=== PATIENT | male | born 1960 | race Caucasian/White ===

== ENCOUNTER 2016-06-17 14:07 | Inpatient (IN) | payer BC, MEDICARE ==
--- NOTE | ~2016-06-17 | HP ---
History And Physical [address] [place]. [address] NAME: KAYLENE VALENCIA : 56 STATUS : ADM IN [facility]#: [id number] AGE: 56 ADM/REG DATE : 06/17/16 MR#: [id number] REPORT SERV DATE: 06/17/16 DICTATED BY: ZAK ARENAS DATE: 06/17/16 REPORT STATUS : Draft TRANSCRIBED BY: MEAGAN DATE: 06/17/16 DATE OF ADMISSION: 06/17/2016 CHIEF COMPLAINT: Shortness of breath. HISTORY OF PRESENT ILLNESS: The patient is a 56-year-old white male with known history of multiple myeloma, who recently suffered a pathological fracture of the left femur and underwent ORIF approximately in April and was on Lovenox approximately one month past his surgery. Over the last four to five days, he started complaining of having shortness of breath especially with exertion. He also had some chest pain that was across his chest mainly in the left upper area with deep breathing. He denied any cough. He has not had any fever, chills, nausea, vomiting. He has noticed no swelling in his lower extremities. He has not taken any long car rides or has changed any other medications in anyway. When he came to the emergency room, he was found to be slightly hypoxic and then a CTA revealed a moderate volume pulmonary embolism. So, he has been referred to the Hospitalist Service for further treatment and evaluation. REVIEW OF SYSTEMS: Otherwise negative. PAST MEDICAL HISTORY: Significant for bilateral hip surgeries and multiple pathological fractures with ORIF in the past. He has multiple myeloma, gastroesophageal reflux, hypothyroidism, and varicose veins. PAST SURGICAL HISTORY: Significant again for multiple pathological fractures including compression fractures of the lumbar spine. This patient reports no history of prior bleeding or other issues. ALLERGIES: NO KNOWN DRUG ALLERGIES. HOME MEDICATIONS: Home medications will be reviewed when available from pharmacy. The patient's home medication includes Zovirax 400 mg twice daily, aspirin 81 mg once daily, vitamin D 2000 units p.o. two times weekly, dexamethasone 20 mg p.o. q.14 days every Tuesday, prednisone 14 mg alternating weeks, Lomotil 5 mg every four hours p.r.n. for diarrhea, Proscar 5 mg once daily, Neurontin 300 mg twice daily, Revlimid 25 mg daily for 21 days, then off for 7 days, levothyroxine 150 mcg once daily, MS Contin 50 mg twice daily p.r.n. for pain, multivitamins one tablet daily, Roxicodone 10 mg every 4 hours p.r.n. for breakthrough pain, Protonix 40 mg once daily, Lamisil 250 mg once daily, Empliciti one dose IV every 14 days, Zometa 4 mg one dose IV every 90 days. FAMILY HISTORY: Brother with aneurysm in his leg and mother had intracranial bleeding, but otherwise unremarkable. SOCIAL HISTORY: The patient is working, is otherwise ambulatory. Denies use of alcohol, tobacco, or illicit substances. History And Physical [address] [address] NAME: KAYLENE VALENCIA : 56 STATUS : ADM IN [facility]#: [id number] AGE: 56 ADM/REG DATE : 06/17/16 MR#: [id number] REPORT SERV DATE: 06/17/16 DICTATED BY: ZAK ARENAS DATE: 06/17/16 REPORT STATUS : Draft TRANSCRIBED BY: MEAGAN DATE: 06/17/16 PHYSICAL EXAMINATION: GENERAL: White male, lying on a gurney, appears to be in no obvious respiratory distress. He is awake, alert. He is oriented. VITAL SIGNS: Blood pressure upon arrival to the emergency room 116/61, temperature is 97.2, pulse is 105, saturation of 96%. HEENT: Head is normocephalic, atraumatic. Pupils are equal, round, and reactive to light. Extraocular muscles are intact. Sclerae anicteric. Conjunctivae normal. Oropharynx without lesion. Tongue protrusion midline. Uvula midline. NECK: Supple. No jugular venous distention. No carotid bruits or thyromegaly is appreciated. No lymphadenopathy in the neck is palpable. HEART: Regular rate and rhythm. Mild tachycardia. No murmurs, rubs, or gallops. PMI nondisplaced. CHEST: Somewhat barrel-chested. LUNGS: Clear to auscultation with diminished sounds in both lung spencer. No rales, rhonchi, wheezing, or evidence of consolidation. ABDOMEN: Scaphoid, soft, nontender, good bowel sounds. No rebound or guarding. No organomegaly. EXTREMITIES: Without cyanosis, clubbing, or edema. Varicose veins are noted. No lesions in the lower extremities. NEUROLOGIC: Completely normal. LABS: CBC: White count 5.0, hemoglobin 10.0, hematocrit 29, platelet count is 80,000. BNP of 111. BMP: Sodium 137, potassium 3.0, chloride 102, bicarb 28, BUN 14, creatinine 1.09, glucose of 106. Troponin less than 0.02. EKG: Sinus rhythm, no acute ST-T wave changes. Leftward axis is noted. CTA chest, moderate-size right pulmonary embolism, left upper lobe opacity unknown, could be related to infarction of the lung. IMPRESSION: 1. Acute moderate volume pulmonary embolism, possibility of left upper lobe infarction. 2. Multiple myeloma. 3. Recent left femur fracture, status post open reduction and internal fixation. 4. Gastroesophageal reflux. 5. Hypothyroidism. 6. Varicose veins. PLAN: The patient will be admitted. Start the patient on loading dose of Eliquis 10 mg twice daily for seven days and then reduce to [address] Wilian Segura for multiple myeloma. Reasonable pain control. Bronchodilator therapy. Wean O2. Two- dimensional echocardiogram to further assess for any cardiac risk due to PE. Obtain bilateral lower extremity venous Dopplers. The patient remains a full code. SV/MEAGAN Zak History And Physical [address] [address] NAME: KAYLENE VALENCIA : 56 STATUS : ADM IN [facility]#: [id number] AGE: 56 ADM/REG DATE : 06/17/16 MR#: [id number] REPORT SERV DATE: 06/17/16 DICTATED BY: ZAK ARENAS P. DATE: 06/17/16 REPORT STATUS : Draft TRANSCRIBED BY: MODL DATE: 06/17/16 Michele Arenas / [id number] CC: Michele Carreon M.D. Darrell Johnson, M.D.
--- NOTE | ~2016-06-17 | DS ---
Discharge Summary [facility] [address] [facility] [place]. [address] NAME: KAYLENE VALENCIA : 56 STATUS : DIS IN PAT#: [id number] AGE: 56 ADM/REG DATE : 06/17/16 MR#: [id number] REPORT SERV DATE: 06/19/16 DICTATED BY: ZAK ARENAS DATE: 06/18/16 REPORT STATUS : Draft TRANSCRIBED BY: MODRosalinda DATE: 06/18/16 ADMISSION DATE: 06/17/2016 DISCHARGE DATE: 06/18/2016 DISCHARGE DIAGNOSES: 1. Acute pulmonary embolism, moderate volume on the right side. 2. Multiple myeloma. 3. Recent left femoral fracture, status post open reduction internal fixation. 4. Gastroesophageal reflux. 5. Hypothyroidism. 6. Varicose veins. CONSULTANTS DURING THIS HOSPITALIZATION: Dr. Wilian Segura of Hematology/Oncology. INVASIVE PROCEDURES DONE DURING THIS HOSPITALIZATION: None. BRIEF HISTORY OF PRESENT ILLNESS: The patient is a 56-year-old white male, presented to the emergency room with shortness of breath and found to have a PE, so he was admitted. For detailed history and physical exam, please see my note dictated on 06/17/2016. HOSPITAL COURSE: After being admitted to the hospital, this patient immediately was started on a loading dose of Eliquis 10 mg twice daily. This patient was observed in the hospital for 24 hours. Lower extremity Dopplers were done and reports of which will be followed up prior to the patient's discharge. This patient is feeling really well today and he is not requiring oxygen even with ambulation. His shortness of breath has improved somewhat as well and he is tolerating the Eliquis without any difficulty. He remained stable otherwise and is being discharged in stable condition. DISCHARGE DISPOSITION: Home. DISCHARGE ACTIVITY: As tolerated. DISCHARGE DIET: As tolerated. DISCHARGE MEDICATIONS: Eliquis 10 mg p.o. twice daily for six more days and then decreased down to 5 mg twice daily, acyclovir 400 mg twice daily, aspirin 81 mg once daily, dexamethasone 20 mg every 14 days and then alternating with 14 mg every 14 days, Proscar 1.25 mg daily, Zometa 4 mg every 90 days IV injection, gabapentin 300 mg twice daily, levothyroxine 150 mcg once daily, morphine SR 15 mg twice daily p.r.n., Protonix 40 mg once daily, Lamisil 250 mg once daily, vitamin D 2000 units two times weekly, Centrum multivitamins, Revlimid 25 mg p.o. daily for 21 days then off for seven days, Empliciti one dose IV every 14 days, Lomotil 2.5 mg every four hours p.r.n. for diarrhea, Roxicodone 10 mg every four hours p.r.n. for pain, calcium one tablet every morning. DISCHARGE FOLLOWUP: With Dr. Wilian Segura as scheduled previously or in one week. Discharge Summary [address] [address] NAME: KAYLENE VALENCIA : 56 STATUS : DIS IN PAT#: [id number] AGE: 56 ADM/REG DATE : 06/17/16 MR#: [id number] REPORT SERV DATE: 06/19/16 DICTATED BY: ZAK ARENAS DATE: 06/18/16 REPORT STATUS : Draft TRANSCRIBED BY: MEAGAN DATE: 06/18/16 More than 30 minutes spent planning this patient's discharge, reconciling medications, writing prescriptions, discussing hospital care, and followup with the patient and documenting this discharge. JOSE/MEAGAN Zak Arenas M.D. / [id number] CC: Michele Carreon M.D. Darrell Johnson, M.D.
[2016-06-17 12:22] LABS: BASOPHILS 0 %; EOSINOPHILS 0 %; IMMATURE GRANULOCYTES 0.6 %; IMMATURE GRANULOCYTES ABSOLUTE 0.03 10/3/uL (0.0-0.11); LYMPHOCYTES 7.2 %; LYMPHOCYTES ABSOLUTE 0.35 10/3/uL (0.67-4.30); MEAN CORPUS HGB CONC 33.4 g/dL (32.0-36.0); MEAN CORPUSCULAR HEMOGLOB 31.4 pg (26.0-34.0); MEAN CORPUSCULAR VOLUME 93.8 fL (80-100); MONOCYTES 12.2 %; MONOCYTES ABSOLUTE 0.59 10/3/uL (0.21-1.20); NEUTROPHILS ABSOLUTE 3.88 10/3/uL (2.02-8.40); RBC DISTRIBUTION WIDTH 15.8 % (12.0-16.0); RED CELL COUNT 3.06 10/6/uL (4.7-6.1)
[2016-06-17 12:23] LABS: ER CBC TAT 0 Hrs 07 Mins; HEMATOCRIT 28.7 % (40.0-51.0); HEMOGLOBIN 9.6 g/dL (13.6-17.8); MANUAL DIFF NO %; PLATELET COUNT 92 10/3/uL (150-400); WHITE BLOOD CELLS 4.9 10/3/uL (4.5-10.5)
[2016-06-17 12:32] LABS: INTERNATIONAL NORMAL RATI 1.1 UNITS (-); PARTIAL THROMBO TIME 33.8 SEC (22.5-37.2); PROTIME (NOT ORD) 13.9 SEC (12.0-14.5)
[2016-06-17 12:41] LABS: ALBUMIN 2.4 G/DL (3.5-5.0); BUN (BLOOD UREA NITROGEN) 14 MG/DL (6-23); CHEST PAIN PROFILE TAT 0 Hrs 25 Mins; CHLORIDE, SERUM 102 MMOL/L (96-112); CO2 (CARBON DIOXIDE) 28 MMOL/L (24-34); CREATININE 1.09 MG/DL (0.70-1.30); DIRECT BILIRUBIN 0.2 MG/DL (0.0-0.4); GFR AFRICAN AMERICAN 86 ML/MIN (>=60); GFR NON AFRICAN AMERICAN 74 ML/MIN (>=60); GLUCOSE, SERUM 106 MG/DL (60-99); INDIRECT BILIRUBIN(NOT ORDER) 0.3 MG/DL (0.1-0.9); SGOT(AST) 37 U/L (5-40); SGPT(ALT) 90 U/L (5-65); SODIUM, SERUM 137 MMOL/L (135-148); TOTAL BILIRUBIN 0.5 MG/DL (0-1.2); TOTAL PROTEIN 6.8 G/DL (6.0-8.5); TROPONIN I <0.02 NG/ML (<0.05)
[2016-06-17 12:43] LABS: ALKALINE PHOSPHATASE 324 U/L (45-117)
[2016-06-17 12:48] LABS: D-DIMER QUANTITATIVE 11.35 ug/mLFEU (< 0.50)
[~2016-06-17 14:07] MED LIST: ASAB PO; CALTRAT600 PO; DEX4 PO; MVI PO; NEUR300 PO; PROSCAR5 PO; REVLIMID PO; REVLIMID25 MG PO; SYN.15 PO; VELCADE; VITAMIN D1000 UNI1 PO; ZANTAC150 MG PO; ZOMETA4 MG/5 ML IV; ZOVIRAX400 MG PO; [UNRECOGNIZED DRUG - OTHER] IV
[2016-06-17] MEDS ORDERED: VITAMIN D2000 UNIT PO (15:02)
[2016-06-17] MEDS ORDERED: CENTRUM PO (15:03)
[2016-06-17] MEDS ORDERED: ASAB PO (15:05)
[2016-06-17] MEDS ORDERED: LEVOTHYROXIN150 MCG PO (15:05)
[2016-06-17] MEDS ORDERED: NEUR300 PO (15:05)
[2016-06-17] MEDS ORDERED: PROSCAR5 PO (15:05)
[2016-06-17] MEDS ORDERED: ZOMETA4 MG/5 ML IV (15:07)
[2016-06-17] MEDS ORDERED: ZOVIRAX400 MG PO (15:07)
[2016-06-17] MEDS ORDERED: REVLIMID25 MG PO (15:07)
[2016-06-17] MEDS ORDERED: DEX2 PO (15:08)
[2016-06-17] MEDS ORDERED: PROTONIX PO (15:09)
[2016-06-17] MEDS ORDERED: [UNRECOGNIZED DRUG - OTHER] IV (15:09)
[2016-06-17] MEDS ORDERED: LOM PO (15:10)
[2016-06-17] MEDS ORDERED: LAM250 PO (15:11)
[2016-06-17] MEDS ORDERED: OXYCOD PO (15:20)
[2016-06-17] MEDS ORDERED: MSCONT15 PO (15:20)
[2016-06-17] MEDS ORDERED: CALCIUM PO (15:24)
[2016-06-18 01:30] LABS: BASOPHILS 0 %; EOSINOPHILS 2.8 %; EOSINOPHILS ABSOLUTE 0.07 10/3/uL (0.0-0.53); HEMOGLOBIN 8.4 g/dL (13.6-17.8); IMMATURE GRANULOCYTES 0.4 %; IMMATURE GRANULOCYTES ABSOLUTE 0.01 10/3/uL (0.0-0.11); LYMPHOCYTES 9.9 %; LYMPHOCYTES ABSOLUTE 0.25 10/3/uL (0.67-4.30); MEAN CORPUS HGB CONC 33.3 g/dL (32.0-36.0); MEAN CORPUSCULAR HEMOGLOB 31.3 pg (26.0-34.0); MONOCYTES 8.3 %; MONOCYTES ABSOLUTE 0.21 10/3/uL (0.21-1.20); NEUTROPHILS 78.6 %; NEUTROPHILS ABSOLUTE 1.98 10/3/uL (2.02-8.40); PLATELET COUNT 75 10/3/uL (150-400); RED CELL COUNT 2.68 10/6/uL (4.7-6.1)
[2016-06-18 01:32] LABS: HEMATOCRIT 25.2 % (40.0-51.0); MANUAL DIFF NO %; WHITE BLOOD CELLS 2.5 10/3/uL (4.5-10.5)
[2016-06-18 01:47] LABS: TROPONIN I <0.02 NG/ML (<0.05)
[2016-06-18 01:51] LABS: PLATELET ESTIMATE DEC (ADEQUATE); RBC MORPHOLOGY NORM (NORMAL)
[2016-06-18 07:21] LABS: BUN (BLOOD UREA NITROGEN) 14 MG/DL (6-23); CALCIUM, SERUM 7.6 MG/DL (8.5-10.4); CHLORIDE, SERUM 107 MMOL/L (96-112); CO2 (CARBON DIOXIDE) 23 MMOL/L (24-34); CREATININE 0.97 MG/DL (0.70-1.30); GFR AFRICAN AMERICAN 99 ML/MIN (>=60); GFR NON AFRICAN AMERICAN 86 ML/MIN (>=60); GLUCOSE, SERUM 131 MG/DL (60-99); PHOSPHORUS, SERUM 2.3 MG/DL (2.5-4.5); POTASSIUM, SERUM 3.3 MMOL/L (3.5-5.3); SODIUM, SERUM 141 MMOL/L (135-148)
[2016-06-18] MEDS ORDERED: ELIQUIS 5 MG TAB5 MG PO ×2 (10:38→10:48)
== END 2016-06-18 17:19 | disposition home or self-care (01) | DRG 176 ==
LOC: ER 14:07 → 4EA 16:05
PROVIDERS: Internal Medicine; Physician Assistant
DX: I26.99 Other pulmonary embolism without acute cor pulmonale (principal); C90.00 Multiple myeloma not having achieved remission; K21.9 Gastro-esophageal reflux disease without esophagitis; E03.9 Hypothyroidism, unspecified; I83.90 Asymptomatic varicose veins of unspecified lower extremity; Z79.899 Other long term (current) drug therapy; Z79.82 Long term (current) use of aspirin
CPT/HCPCS: 71010; 71275; 77336; 77412; 80048; 80069; 80076; 83735; 83880; 84484; 85025; 85379; 85610; 85730; 93005; 93306; 93970; 99291; A9270-GY

== ENCOUNTER 2016-07-28 13:07 | Day surgery (SDC) | payer BC, MEDICARE ==
[~2016-07-28 13:07] MED LIST changes: +CALCIUM PO; +CENTRUM PO; +DEX2 PO; +ELIQUIS 5 MG TAB5 MG PO; +LAM250 PO; +LEVOTHYROXIN150 MCG PO; +LOM PO; +MSCONT15 PO; +OXYCOD PO; +PROTONIX PO; +VITAMIN D2000 UNIT PO; +[UNRECOGNIZED DRUG - OTHER] IV
[2016-07-28 14:00] LABS: MEAN CORPUS HGB CONC 32.7 g/dL (32.0-36.0); MEAN CORPUSCULAR HEMOGLOB 31.9 pg (26.0-34.0); PLATELET COUNT 61 10/3/uL (150-400); RBC DISTRIBUTION WIDTH 18.4 % (12.0-16.0); RED CELL COUNT 3.17 10/6/uL (4.7-6.1)
[2016-07-28 14:11] LABS: HEMATOCRIT 30.9 % (40.0-51.0); HEMOGLOBIN 10.1 g/dL (13.6-17.8); MANUAL DIFF YES %; MEAN CORPUSCULAR VOLUME 97.5 fL (80-100); RETICULOCYTE COUNT 2.4 % (0.5-2.5); RETICULOCYTE COUNT ABSOLUTE 74.5 10/3/uL (20.2-119.8); WHITE BLOOD CELLS 1.7 10/3/uL (4.5-10.5)
[2016-07-28 14:13] LABS: CALCIUM, SERUM 8.2 MG/DL (8.5-10.4); CHLORIDE, SERUM 109 MMOL/L (96-112); CO2 (CARBON DIOXIDE) 26 MMOL/L (24-34); CREATININE 0.83 MG/DL (0.70-1.30); GFR AFRICAN AMERICAN 112 ML/MIN (>=60); GFR NON AFRICAN AMERICAN 97 ML/MIN (>=60); POTASSIUM, SERUM 3.8 MMOL/L (3.5-5.3); SODIUM, SERUM 140 MMOL/L (135-148)
[2016-07-28 14:14] LABS: BUN (BLOOD UREA NITROGEN) 9 MG/DL (6-23); GLUCOSE, SERUM 81 MG/DL (60-99)
[2016-07-28 14:33] LABS: BASOPHILS 1 %; BASOPHILS ABSOLUTE (CALC) 0.02 10/3/uL (0.0-0.16); EOSINOPHILS 1 %; EOSINOPHILS ABSOLUTE (CALC) 0.02 10/3/uL (0.0-0.53); LYMPHOCYTES 36 %; LYMPHOCYTES ABSOLUTE (CALC) 0.61 10/3/uL (0.67-4.30); MONOCYTES 3 %; MONOCYTES ABSOLUTE (CALC) 0.05 10/3/uL (0.21-1.20); SEGMENTED NEUTROPHIL (0) 59 %; TOTAL NUCLEATED CELLS 100
[2016-07-28 14:34] LABS: ANISOCYTOSIS 1+ (5-10/OIF) (0-5/OIF); PLATELET ESTIMATE DEC (ADEQUATE); TEARDROP SHAPED RBCS FEW (3-10/OIF)
== END 2016-07-28 16:44 | disposition home or self-care (01) ==
LOC: DMU 13:07
PROVIDERS: Internal Medicine Hematology & Oncology; Pathology Cytopathology
PROC: 07DR3ZX Extraction of Iliac Bone Marrow, Percutaneous Approach, Diagnostic (ICD-10-PCS; principal; 2016-07-28 15:00)
DX: C90.00 Multiple myeloma not having achieved remission (principal); D61.818 Other pancytopenia; Z86.718 Personal history of other venous thrombosis and embolism; Z86.711 Personal history of pulmonary embolism; Z79.891 Long term (current) use of opiate analgesic; Z79.899 Other long term (current) drug therapy; Z79.82 Long term (current) use of aspirin
CPT/HCPCS: 80048; 85025; 85045; 88305; 88313; 88360